=== PATIENT | male | born 1955 | race Caucasian/White ===

== ENCOUNTER 2021-04-05 05:30 | Outpatient (CLI) | payer MEDICARE, OTHER ==
[~2021-04-05] VITALS: Ht 188 cm; Wt 119.1 kg
[2021-04-05] MEDS ORDERED: GLIM2TAB4 PO (09:28)
[2021-04-05] MEDS ORDERED: SITA100T12 PO (09:28)
[2021-04-05] MEDS ORDERED: NIAC1000 PO (09:28)
[2021-04-05] MEDS ORDERED: MULT-1136 PO (09:28)
[2021-04-05] MEDS ORDERED: PANT40GR PO (09:28)
[2021-04-05] MEDS ORDERED: LISI1TAB46 PO (09:28)
[2021-04-05] MEDS ORDERED: AMLO-250 PO (09:28)
[2021-04-05] MEDS ORDERED: METF-397 PO (09:28)
[2021-04-05] MEDS ORDERED: ATOR10TA66 PO (09:28)
[2021-04-05] MEDS ORDERED: OMG1KC PO (09:28)
[2021-04-05] MEDS ORDERED: EMPA25TA PO (09:28)
== END 2021-04-05 13:06 | disposition home or self-care (01) ==
LOC: PREOP 05:30
PROVIDERS: ATTEND Surgery
DX: Z01.818 Encounter for other preprocedural examination (principal)

== ENCOUNTER → 2021-04-12 | Day surgery (SDC) | payer MEDICARE, OTHER ==
[2021-04-12] VITALS (7 sets, daily range): BP systolic 95–129; BP diastolic 55–79
[~2021-04-12] VITALS: Ht 185.5 cm; Wt 119.1 kg
[~2021-04-12] MED LIST: AMLO-250 PO; ATOR10TA66 PO; EMPA25TA PO; GLIM2TAB4 PO; LIDOCAINE JELLY 2% 6 ML SYRINGE MM PRN; LISI1TAB46 PO; METF-397 PO; MIDAZOLAM 5 MG/5 ML (VERSED) VIAL IV ONE; MULT-1136 PO; NIAC1000 PO; NS IV 500 ML 500 ML IV PRN; NS IV 500 ML 500 ML ONE; OMG1KC PO; ONDANSETRON 4 MG (ZOFRAN) ORAL DISSOLVE TAB PO PRN; ONDANSETRON 4 MG/2 ML (SDV) Z0FRAN IVP PRN; PANT40GR PO; SITA100T12 PO; fentaNYL INJ 100 MCG/2 ML AMP IVP ONE
--- NOTE | 2021-04-12 09:53 | Conscious Sedation/ASA ---
Conscious Sedation Pre-Proced Time 09:30 ASA Score 2 For ASA 3 and 4: Consider anesthesia and medical clearance. Also, for patients with a history of failed moderate sedation consider anesthesia. Airway Lungs Heart ASA score ASA 1: a normal healthy patient ASA 2: a patient with a mild systemic disease (mid diabetes, controlled hypertension, obesity ASA 3: a patient with a severe systemic disease that limits activity (angina, COPD, prior Myocardial infarction) ASA 4: a patient with an incapacitating disease that is a constant threat to life (CHF, renal failure) ASA 5: a moribund patient not expected to survive 24 hrs. (ruptured aneurysm) ASA 6: a declared brain- patient whose organs are being harvested. For emergent operations, add the letter E after the classification Mallampati Classification Grade 2 Sedation Plan Analgesia, Amnesia, Plan communicated to team members, Discussed options with patient/fam, Discussed risks with patient/fam The patient is an appropriate candidate to undergo the planned procedure, sedation, and anesthesia. The patient immediately re-assessed prior to indication. TIARRA GUZMAN MD Apr 12, 2021 09:53
--- NOTE | 2021-04-12 09:55 | Progress Note-Pre Operative ---
Pre-Operative Progress Note H&P Reviewed The H&P was reviewed, patient examined and no changes noted. Date Seen by Provider: Apr 12, 2021 Time Seen by Provider: 09:30 Date H&P Reviewed: Apr 12, 2021 Time H&P Reviewed: 09:30 Pre-Operative Diagnosis: screening TIARRA Olivier MD Apr 12, 2021 09:55
--- NOTE | 2021-04-12 09:56 | Discharge Inst-Surgical ---
D/C Lap Instructions-MEGAN Follow Up Appt in 2 weeks Activity as tolerated High Fiber Diet 25g or more per day Avoid Alcohol, Caffeine, Spicy [place] and Acid foods. Drink 64 fluid oz or more of fluids per day. Symptoms to Report: Fever over 101 degree F, Nausea/Vomiting If any problems/questions: Contact your physician or go to Emergency Room TIARRA GUZMAN MD Apr 12, 2021 09:56
--- NOTE | 2021-04-12 11:33 | Progress Note-Post Operative ---
Post-Operative Progess Note Surgeon (s)/Mail Processing Clerk (s) Surgeon TIARRA GUZMAN MD Mail Processing Clerk: none Pre-Operative Diagnosis screening colo Post-Operative Diagnosis mild chronic stage 2 ext and int hemorrhoids, mild sigmoid diverticulosis. Procedure & Operative Findings Date of Procedure 04/12/21 Procedure Performed/Findings colonoscopy Anesthesia Type cs Estimated Blood Loss Estimated blood loss (mL): minimal Specimens/Packing Specimens Removed none TIARRA GUZMAN MD Apr 12, 2021 11:33
--- NOTE | 2021-04-12 18:58 | OPERATIVE REPORT ---
DATE OF SERVICE: 04/12/2021 ATTENDING PRIMARY CARE PHYSICIAN: Pat Salgado APRN. PREOPERATIVE DIAGNOSIS: Screening colonoscopy. POSTOPERATIVE DIAGNOSES: Mild chronic stage II external and internal hemorrhoids, mild sigmoid diverticulosis. PROCEDURE PERFORMED: Colonoscopy. SURGEON: Tiarra Guzman MD. ANESTHESIA: Conscious sedation. ESTIMATED BLOOD LOSS: Minimal. FINDINGS: Mild chronic stage II external and internal hemorrhoids, mild sigmoid diverticulosis. DISPOSITION: The patient tolerated the procedure well. INDICATIONS FOR PROCEDURE: The patient is a 66-year-old male referred over to us for a screening colonoscopy. He states his last colonoscopy was greater than 10 years ago. He does not report any issues with diarrhea nor constipation as well as no red blood per rectum nor any dark tarry stools. He also does not report any red blood per rectum nor any dark tarry stools. He does not know of any family history of colon cancer. DESCRIPTION OF PROCEDURE: The patient was brought to endoscopy suite and laid in the left lateral decubitus position. After adequate IV pain and sedative medications and conscious sedation anesthesia, a digital rectal examination was performed. Mild chronic stage II external and internal hemorrhoids were identified, which were not actively edematous nor inflamed and no bleeding. Normal sphincter tone was felt and there were no palpable masses. Prostate gland was palpable and appeared normal. The endoscope was then intubated and anus and rectum gently insufflated. The endoscope was then advanced through the valves of Hurd of the rectum with no polyps or any neoplasms identified. Through the sigmoid colon, there were a few isolated small diverticula identified. The endoscope was then advanced and remainder of the descending, transverse, and ascending colon to the cecum, which were normal. No polyps or any neoplasms identified. The endoscope was then slowly withdrawn while taking a second look and suctioning of residual air with no additional findings. The patient tolerated the procedure well. We will recommend continued medical management with a high fiber diet with at least 30 grams of fiber daily as well as significant amounts of water to promote soft stools on a daily basis and if he is asymptomatic, he does not need another colonoscopy for another 10 years. Job ID: [id number] DocumentID: [id number] Dictated Date: 04/12/2021 11:29:14 Assurance Specialist Date: 04/12/2021 18:57:27 Dictated By: TIARRA GUZMAN MD
== END | disposition home or self-care (01) ==
LOC: ENDO 09:16
PROVIDERS: ATTEND Surgery
DX: Z12.11 Encounter for screening for malignant neoplasm of colon (principal); K64.1 Second degree hemorrhoids; K57.30 Diverticulosis of large intestine without perforation or abscess without bleeding; I10 Essential (primary) hypertension; E11.9 Type 2 diabetes mellitus without complications; E78.00 Pure hypercholesterolemia, unspecified; Z79.899 Other long term (current) drug therapy; Z79.84 Long term (current) use of oral hypoglycemic drugs; Z86.010 Personal history of colon polyps; Z87.891 Personal history of nicotine dependence
CPT/HCPCS: G0121

== ENCOUNTER 2022-12-26 08:20 | Outpatient (RCR) | payer MEDICARE ==
[~2022-12-26 08:20] MED LIST changes: -LIDOCAINE JELLY 2% 6 ML SYRINGE MM PRN; -MIDAZOLAM 5 MG/5 ML (VERSED) VIAL IV ONE; -NS IV 500 ML 500 ML IV PRN; -NS IV 500 ML 500 ML ONE; -ONDANSETRON 4 MG (ZOFRAN) ORAL DISSOLVE TAB PO PRN; -ONDANSETRON 4 MG/2 ML (SDV) Z0FRAN IVP PRN; -fentaNYL INJ 100 MCG/2 ML AMP IVP ONE
== END 2023-01-03 | disposition home or self-care (01) ==
LOC: ONC 08:20
PROVIDERS: ATTEND Internal Medicine Hematology & Oncology
DX: C67.9 Malignant neoplasm of bladder, unspecified (principal); I10 Essential (primary) hypertension; E11.9 Type 2 diabetes mellitus without complications
CPT/HCPCS: 99204